=== PATIENT | male | born 1995 | race Caucasian/White ===

== ENCOUNTER 2017-06-12 09:53 | Inpatient (IN) | payer OTHER, MEDICAID ==
[2017-06-12] MEDS: SOD CHLORIDE 0.9% 1,000 ML IV ×2 (10:45→22:56)
[2017-06-12] MEDS: LORAZEPAM 2 MG INJ IV ×2 (10:46→16:30)
[2017-06-12 11:00] LABS: ADD MAN DIFF? NO
[2017-06-12 11:05] LABS: BASOPHILS % 0.5 % (0.0-2.0); EOSINOPHILS % 0.7 % (0.0-7.0); HEMATOCRIT 42.7 % (42.0-52.0); HEMOGLOBIN 14.8 g/dl (14.0-18.0); LYMPHOCYTES # 1.7 10^3/ul (0.8-2.9); LYMPHOCYTES % 29.8 % (15.0-51.0); MEAN CORPUSCULAR HGB CONC 34.7 g/dl (32.0-37.0); MEAN CORPUSCULAR VOLUME 86.6 fl (82.0-101.0); MEAN PLATELET VOLUME 10.1 fl (7.4-10.4); MONOCYTE # 0.5 10^3/ul (0.3-0.9); MONOCYTES % 7.8 % (0.0-11.0); NEUTROPHIL # 3.5 10^3/ul (1.6-7.5); PLATELET COUNT 208 10^3/UL (140-415); RED BLOOD COUNT 4.93 10^6/ul (4.70-6.10); RED CELL DISTRIBUTION WIDTH 12.6 % (11.5-14.5)
[2017-06-12 11:05] LABS: WHITE BLOOD COUNT 5.8 10^3/ul (4.8-10.8)
[2017-06-12 11:27] LABS: ALANINE AMINOTRANSFERASE 86 IU/L (13-69); ALBUMIN 4.5 g/dl (3.3-4.9); ALKALINE PHOSPHATASE 72 IU/L (42-121); ASPARTATE AMINO TRANSFERASE 44 IU/L (15-46); BILIRUBIN,INDIRECT 0.4 mg/dl (0-1.1); BILIRUBIN,TOTAL 0.4 mg/dl (0.2-1.3); BLOOD UREA NITROGEN 8 mg/dl (7-20); CALCIUM 9.3 mg/dl (8.4-10.2); CARBON DIOXIDE 26 mmol/L (21-31); CHLORIDE 104 mmol/L (97-110); CREATINE KINASE 224 IU/L (23-200); CREATININE 0.69 mg/dl (0.61-1.24); GLUCOSE 90 mg/dl (70-220); SODIUM 144 mmol/L (135-144); TOTAL PROTEIN 7.5 g/dl (6.1-8.1)
[2017-06-12 11:29] LABS: INR 0.99; PROTIME 13.2 Sec (11.9-14.9)
[2017-06-12 11:30] LABS: PARTIAL THROMBOPLASTIN TIME 31.4 Sec (25.0-35.0)
[2017-06-12 11:33] LABS: ETHANOL < 10.0 mg/dl
[2017-06-12 11:33] LABS: ANION GAP 18 (8-16); POTASSIUM 3.8 mmol/L (3.5-5.1)
[2017-06-12] MEDS: METOPROLOL 5 MG INJ IV ×2 (11:33→12:53)
[2017-06-12 11:37] LABS: CK INDEX 0.5
[2017-06-12 11:41] LABS: B-TYPE NATRIURETIC PEPTIDE < 11 PG/ML (0-125); CK-MB 1.02 ng/ml (0.0-2.4); TROPONIN-I < 0.012 ng/ml (0.00-0.12)
[2017-06-12 12:23] LABS: ADD UMIC NO; UR ASCORBIC ACID NEGATIVE (NEGATIVE); UR BILIRUBIN (Dip) NEGATIVE (NEGATIVE); UR BLOOD (Dip) NEGATIVE (NEGATIVE); UR BUDDING YEAST FEW /HPF (NONE SEEN); UR CLARITY SLIGHTLY CLOUDY (CLEAR); UR COLOR YELLOW (YELLOW); UR GLUCOSE (Dip) NEGATIVE (NEGATIVE); UR KETONES (Dip) NEGATIVE (NEGATIVE); UR LEUKOCYTE ESTERASE (Dip) NEGATIVE Leu/ul (NEGATIVE); UR NITRITE (Dip) NEGATIVE (NEGATIVE); UR RBC 0 /HPF (0-5); UR SPECIFIC GRAVITY (Dip) 1.014 (1.003-1.030); UR TOTAL PROTEIN (Dip) NEGATIVE (NEGATIVE); UR UROBILINOGEN (Dip) NEGATIVE (NEGATIVE); UR WBC 0 /HPF (0-5)
[2017-06-12 12:54] LABS: BARBITURATES Negative (NEGATIVE)
[2017-06-12 12:58] LABS: AMPHETAMINE/METHAMPHETAMINE Negative (NEGATIVE); BENZODIAZEPINES Negative (NEGATIVE); CANNABINOIDS Negative (NEGATIVE); COCAINE Positive (NEGATIVE); OPIATES Negative (NEGATIVE)
[2017-06-12] MEDS: DILTIAZEM 25 MG INJ IV (15:10)
[2017-06-12] MEDS ORDERED: ACETAMINOPHEN 325 MG TAB PO ×2 (20:30→22:30)
[2017-06-12] MEDS ORDERED: ONDANSETRON 4 MG INJ IV (20:30)
[2017-06-12] MEDS ORDERED: NITROGLYCERIN (SL) 0.4 MG TAB SL (22:30)
[2017-06-12] MEDS ORDERED: NACL 0.9% 3 ML SYG IV (22:30)
[2017-06-12] MEDS ORDERED: LORAZEPAM 2 MG INJ IV (22:30)
[2017-06-12] MEDS ORDERED: morphine 2 MG INJ IV (22:30)
[2017-06-12] MEDS: DILTIAZEM-D5W 125MG/125ML DRIP 125 ML IV (22:55)
[2017-06-12 23:27] LABS: CREATINE KINASE 153 IU/L (23-200)
[2017-06-12] MEDS: METHYLPREDNISOLONE 125 MG INJ IV (23:30)
[2017-06-12 23:40] LABS: CK INDEX 0.6
[2017-06-12 23:45] LABS: CK-MB 0.95 ng/ml (0.0-2.4); TROPONIN-I < 0.012 ng/ml (0.00-0.12)
[2017-06-12 23:45] LABS: FREE T4 (FREE THYROXINE) 0.84 ng/dl (0.79-2.35)
[2017-06-12 23:46] LABS: FREE T3 4.77 pg/ml (2.77-5.27)
[2017-06-13] MEDS: NALOXONE (0.4 MG/ML) INJ IV (01:42)
[2017-06-13] MEDS: LABETALOL HCL 20MG INJ IV ×2 (01:43→23:05)
[2017-06-13] MEDS: LORAZEPAM 2 MG INJ IV (01:43)
[2017-06-13] MEDS: SOD CHLORIDE 0.9% 1,000 ML IV ×4 (03:53→21:22)
[2017-06-13] MEDS: DILTIAZEM-D5W 125MG/125ML DRIP 125 ML IV (04:55)
[2017-06-13 04:57] LABS: ADD MAN DIFF? NO
[2017-06-13 04:59] LABS: BASOPHILS % 0.1 % (0.0-2.0); EOSINOPHILS % 0.1 % (0.0-7.0); HEMATOCRIT 44.8 % (42.0-52.0); HEMOGLOBIN 15.4 g/dl (14.0-18.0); LYMPHOCYTES # 0.8 10^3/ul (0.8-2.9); LYMPHOCYTES % 11.5 % (15.0-51.0); MEAN CORPUSCULAR HEMOGLOBIN 29.6 pg (29.0-33.0); MEAN CORPUSCULAR HGB CONC 34.4 g/dl (32.0-37.0); MONOCYTE # 0.1 10^3/ul (0.3-0.9); NEUTROPHIL # 5.8 10^3/ul (1.6-7.5); NEUTROPHILS % 87.2 % (39.0-77.0); PLATELET COUNT 205 10^3/UL (140-415); RED BLOOD COUNT 5.21 10^6/ul (4.70-6.10); RED CELL DISTRIBUTION WIDTH 12.4 % (11.5-14.5)
[2017-06-13 04:59] LABS: WHITE BLOOD COUNT 6.7 10^3/ul (4.8-10.8)
[2017-06-13] MEDS ORDERED: AMIODARONE 150 MG INJ IV (05:13)
[2017-06-13 05:40] LABS: CREATINE KINASE 125 IU/L (23-200)
[2017-06-13] MEDS: AMIODARONE 150MG/D5W BOLUS 100 ML IV (05:40)
[2017-06-13 05:45] LABS: ALANINE AMINOTRANSFERASE 87 IU/L (13-69); ALBUMIN 4.3 g/dl (3.3-4.9); ALBUMIN/GLOBULIN RATIO 1.26; ALKALINE PHOSPHATASE 77 IU/L (42-121); ANION GAP 15 (8-16); ASPARTATE AMINO TRANSFERASE 46 IU/L (15-46); BILIRUBIN,INDIRECT 0.6 mg/dl (0-1.1); BILIRUBIN,TOTAL 0.6 mg/dl (0.2-1.3); BLOOD UREA NITROGEN 10 mg/dl (7-20); CALCIUM 9.6 mg/dl (8.4-10.2); CARBON DIOXIDE 22 mmol/L (21-31); CHLORIDE 107 mmol/L (97-110); CREATININE 0.73 mg/dl (0.61-1.24); GLUCOSE 151 mg/dl (70-220); POTASSIUM 3.7 mmol/L (3.5-5.1); SODIUM 140 mmol/L (135-144); TOTAL PROTEIN 7.7 g/dl (6.1-8.1)
[2017-06-13 05:52] LABS: CK INDEX 0.7
[2017-06-13 05:57] LABS: CK-MB 0.85 ng/ml (0.0-2.4); TROPONIN-I < 0.012 ng/ml (0.00-0.12)
[2017-06-13] MEDS: AMIODARONE 900 MG in DEXTROSE 5% 482 ML IV (06:09)
[2017-06-13] MEDS: ASPIRIN 81 MG TAB PO (09:30)
[2017-06-13] MEDS: HEPARIN 5,000 UNIT/0.5 ML VIAL SC ×2 (09:35→21:39)
[2017-06-13] MEDS: DILTIAZEM 60 MG TAB PO (21:21)
[2017-06-14] MEDS: LABETALOL HCL 20MG INJ IV ×2 (07:06→13:44)
[2017-06-14] MEDS: SOD CHLORIDE 0.9% 1,000 ML IV ×3 (07:40→19:18)
[2017-06-14] MEDS: DILTIAZEM 60 MG TAB PO ×2 (08:53→12:29)
[2017-06-14] MEDS: ASPIRIN 81 MG TAB PO (08:53)
[2017-06-14] MEDS: HEPARIN 5,000 UNIT/0.5 ML VIAL SC ×2 (08:54→20:15)
[2017-06-14] MEDS: DILTIAZEM 90 MG TAB PO ×2 (17:34→23:58)
[2017-06-15] MEDS: SOD CHLORIDE 0.9% 1,000 ML IV ×2 (03:25→14:18)
[2017-06-15] MEDS: DILTIAZEM 90 MG TAB PO ×3 (05:24→18:25)
[2017-06-15 06:28] LABS: ADD MAN DIFF? NO
[2017-06-15 06:38] LABS: WHITE BLOOD COUNT 6.9 10^3/ul (4.8-10.8)
[2017-06-15 06:38] LABS: BASOPHILS % 0.6 % (0.0-2.0); EOSINOPHILS # 0.1 10^3/ul (0.0-0.5); HEMOGLOBIN 14.9 g/dl (14.0-18.0); LYMPHOCYTES # 2.8 10^3/ul (0.8-2.9); LYMPHOCYTES % 40.6 % (15.0-51.0); MEAN CORPUSCULAR HGB CONC 34.7 g/dl (32.0-37.0); MEAN CORPUSCULAR VOLUME 86.5 fl (82.0-101.0); MEAN PLATELET VOLUME 10.3 fl (7.4-10.4); MONOCYTE # 0.5 10^3/ul (0.3-0.9); MONOCYTES % 7.2 % (0.0-11.0); NEUTROPHIL # 3.5 10^3/ul (1.6-7.5); NEUTROPHILS % 50.2 % (39.0-77.0); PLATELET COUNT 213 10^3/UL (140-415); RED BLOOD COUNT 4.97 10^6/ul (4.70-6.10); RED CELL DISTRIBUTION WIDTH 12.7 % (11.5-14.5)
[2017-06-15 07:04] LABS: ANION GAP 14 (8-16); BLOOD UREA NITROGEN 11 mg/dl (7-20); CALCIUM 8.9 mg/dl (8.4-10.2); CARBON DIOXIDE 25 mmol/L (21-31); CHLORIDE 106 mmol/L (97-110); GLUCOSE 95 mg/dl (70-220); PHOSPHORUS 4.5 mg/dl (2.5-4.9); POTASSIUM 4.2 mmol/L (3.5-5.1); SODIUM 141 mmol/L (135-144)
[2017-06-15] MEDS: ASPIRIN 81 MG TAB PO (09:25)
[2017-06-15] MEDS: HEPARIN 5,000 UNIT/0.5 ML VIAL SC (10:37)
[2017-06-15] MEDS: LISINOPRIL 5 MG TAB PO (17:07)
[2017-06-15] MEDS ORDERED: METOPROLOL 25 MG TAB GTB (21:00)
== END 2017-06-15 18:35 | disposition home or self-care (01) | DRG 309 ==
LOC: TEL 20:10 → E/R 09:53
DX: I47.1 Supraventricular tachycardia (principal); Z68.42 Body mass index [BMI] 45.0-49.9, adult; F14.10 Cocaine abuse, uncomplicated; E66.01 Morbid (severe) obesity due to excess calories; Z72.0 Tobacco use
CPT/HCPCS: 71045; 80048; 80053; 80306; 80307; 81001; 81003; 82550; 82553; 83735; 83880; 84100; 84439; 84443; 84481; 84484; 85025; 85610; 85730; 93005; 93306; 96365; 96366; 96372; 96375; 96376; 99285-25

== ENCOUNTER 2018-12-07 19:50 | Emergency (ER) | payer SELFPAY, OTHER ==
[2018-12-07] MEDS: IBUPROFEN 600 MG TAB PO (21:07)
== END 2018-12-07 21:30 | disposition home or self-care (01) ==
LOC: FTE 19:50
DX: H92.02 Otalgia, left ear (principal); F17.210 Nicotine dependence, cigarettes, uncomplicated; M54.2 Cervicalgia
CPT/HCPCS: 99283